=== PATIENT | male | born 1995 | race Caucasian/White ===

== ENCOUNTER 2021-02-07 10:19 | Inpatient (IN) | payer OTHER ==
[~2021-02-07] VITALS: Ht 180.3 cm; Wt 158.8 kg
[2021-02-07] MEDS ORDERED: CLINDAMYCIN PHOSPHATE IV 600 MG in IV DEXTROSE 5% 100 ML IV ONE (11:15)
[2021-02-07] MEDS ORDERED: VANCOMYCIN IV 1,000 MG in IV DEXTROSE 5% 250 ML IV ONE (11:15)
[2021-02-07] MEDS ORDERED: CEFTRIAXONE 1 G in IV DEXTROSE 5% 50 ML IV ONE (11:15)
[2021-02-07] MEDS ORDERED: VANCOMYCIN IV 200 ML ONE (11:25)
[2021-02-07] MEDS ORDERED: CEFTRIAXONE /D5W 50ML IVPB **ER PYXIS IV ONE (11:25)
[2021-02-07 12:03] LABS: HEMATOCRIT 48.3 % (36.7-47.1); MEAN CORPUSCULAR HEMOGLOBIN 30.3 uug (23.8-33.4); MEAN CORPUSCULAR VOLUME 89.2 fL (73.0-96.2); PLATELET COUNT (AUTO) 284 K/uL (152-348)
[2021-02-07] MEDS ORDERED: diphenhydrAMINE 50 MG/1 ML VIAL IV ONE (12:15)
[2021-02-07] MEDS ORDERED: diphenhydrAMINE 50 MG/1 ML VIAL ONE (12:21)
[2021-02-07 12:22] LABS: CREATININE 0.9 mg/dL (0.6-1.3); POTASSIUM 3.9 mmol/L (3.5-5.1)
[2021-02-07 12:34] LABS: BILIRUBIN,DIRECT 0.3 mg/dL (0.0-0.2); TOTAL PROTEIN, SERUM 7.2 g/dL (6.4-8.2)
[2021-02-07] MEDS ORDERED: SULF1TAB48 PO (12:47)
[2021-02-07] MEDS ORDERED: CEPH500C2 PO (12:47)
[2021-02-07 20:15] VITALS: BP_SYST 113; BP_SYST 122; BP_DIAS 44; BP_DIAS 69
[2021-02-07] MEDS ORDERED: Z GUARD REMEDY PASTE 57 GM TUBE TOP PRN (20:45)
[2021-02-07] MEDS ORDERED: ZOLPIDEM 5 MG TABLET PO PRN (20:45)
[2021-02-07] MEDS ORDERED: MAGNESIUM HYDROXIDE 30 ML LIQUID UDC PO PRN (20:45)
[2021-02-07] MEDS ORDERED: KETOROLAC TROMETHAMINE 15 MG INJ IVP PRN (20:45)
[2021-02-07] MEDS ORDERED: ONDANSETRON 4 MG/2 ML VIAL IV PRN (20:45)
[2021-02-07] MEDS: IV NS 1000 ML 1,000 ML IV PRN (21:02)
[2021-02-07] MEDS: ENOXAPARIN SODIUM 40 MG/0.4 ML DISP.SYRIN SQ SCH (21:04)
[2021-02-07] MEDS ORDERED: PIPERACILLIN/TAZO 4.5 GM VIAL IV ONE (21:54)
[2021-02-07] MEDS: LINEZOLID IV 600 MG in PREMIXED 1 EACH IV SCH (21:54)
[2021-02-07] MEDS ORDERED: PIPERACILLIN SODIUM/TAZOBACTAM 4.5 G in IV DEXTROSE 5% 50 ML IV SCH (22:00)
[2021-02-07] MEDS: PIPERACILLIN SODIUM/TAZOBACTAM 4.5 G in IV DEXTROSE 5% 50 ML IV SCH (23:26)
[2021-02-08 04:15] VITALS: BP_SYST 119; BP_SYST 80; BP_DIAS 129; BP_DIAS 59
[2021-02-08] MEDS: PIPERACILLIN SODIUM/TAZOBACTAM 4.5 G in IV DEXTROSE 5% 50 ML IV SCH (06:01)
[2021-02-08 07:33] LABS: HEMATOCRIT 45.8 % (36.7-47.1); MEAN CORPUSCULAR HEMOGLOBIN 30.1 uug (23.8-33.4); MEAN CORPUSCULAR VOLUME 90.3 fL (73.0-96.2); PLATELET COUNT (AUTO) 275 K/uL (152-348)
[2021-02-08 08:03] LABS: BILIRUBIN,TOTAL 0.6 mg/dL (0.2-1.0); CREATININE 1.1 mg/dL (0.6-1.3); MAGNESIUM 2.2 mg/dL (1.8-2.4); PHOSPHOROUS 3.5 mg/dL (2.5-4.9); POTASSIUM 3.9 mmol/L (3.5-5.1); TOTAL PROTEIN, SERUM 6.6 g/dL (6.4-8.2)
[2021-02-08] MEDS: LINEZOLID IV 600 MG in PREMIXED 1 EACH IV SCH ×2 (08:19→20:47)
[2021-02-08 12:00] VITALS: BP 120/67
[2021-02-08] MEDS: PIPERACILLIN SODIUM/TAZOBACTAM 3.375 G in IV DEXTROSE 5% 100 ML IV SCH ×2 (13:17→22:01)
[2021-02-08 15:47] VITALS: BP 101/41
[2021-02-08 20:09] VITALS: BP 109/69
[2021-02-08] MEDS: ENOXAPARIN SODIUM 40 MG/0.4 ML DISP.SYRIN SQ SCH (20:51)
[2021-02-09] MEDS: IV NS 1000 ML 1,000 ML IV PRN ×2 (02:16→18:35)
[2021-02-09] MEDS: ACETAMINOPHEN 325 MG TABLET PO PRN ×2 (02:19→16:05)
[2021-02-09 04:09] VITALS: BP 120/62
[2021-02-09] MEDS: PIPERACILLIN SODIUM/TAZOBACTAM 3.375 G in IV DEXTROSE 5% 100 ML IV SCH ×3 (05:20→21:11)
[2021-02-09 06:35] LABS: HEMATOCRIT 43.1 % (36.7-47.1); PLATELET COUNT (AUTO) 257 K/uL (152-348)
[2021-02-09] MEDS: LINEZOLID IV 600 MG in PREMIXED 1 EACH IV SCH (08:49)
[2021-02-09 11:59] VITALS: BP 123/76
[2021-02-09 20:21] VITALS: BP 136/62
[2021-02-09] MEDS: LINEZOLID 600 MG TABLET PO SCH (21:14)
[2021-02-09] MEDS: ENOXAPARIN SODIUM 40 MG/0.4 ML DISP.SYRIN SQ SCH (21:26)
[2021-02-10 04:21] VITALS: BP 133/76
[2021-02-10] MEDS: PIPERACILLIN SODIUM/TAZOBACTAM 3.375 G in IV DEXTROSE 5% 100 ML IV SCH ×3 (05:42→21:01)
[2021-02-10 06:46] LABS: HEMATOCRIT 45.2 % (36.7-47.1); MEAN CORPUSCULAR HEMOGLOBIN 29.9 uug (23.8-33.4); MEAN CORPUSCULAR VOLUME 88.1 fL (73.0-96.2); PLATELET COUNT (AUTO) 253 K/uL (152-348)
[2021-02-10 07:21] LABS: CREATININE 0.9 mg/dL (0.6-1.3); MAGNESIUM 2.1 mg/dL (1.8-2.4); PHOSPHOROUS 3.8 mg/dL (2.5-4.9); POTASSIUM 3.7 mmol/L (3.5-5.1)
[2021-02-10] MEDS: LINEZOLID 600 MG TABLET PO SCH ×2 (08:00→20:31)
[2021-02-10 11:50] VITALS: BP 128/66
[2021-02-10 16:00] VITALS: BP 133/63
[2021-02-10 16:46] LABS: BAND % (MANUAL) 4 % (0-10); EOSINOPHILS % (MANUAL) 5 % (0-8); LYMPHOCYTES % (MANUAL) 17 % (20-40); MONOCYTES % (MANUAL) 12 % (2-10); NEUTROPHILS % (MANUAL) 62 % (42-75)
[2021-02-10] MEDS: ENOXAPARIN SODIUM 40 MG/0.4 ML DISP.SYRIN SQ SCH (20:42)
[2021-02-10] MEDS: IV NS 1000 ML 1,000 ML IV PRN (23:49)
[2021-02-11 04:15] VITALS: BP 127/88
[2021-02-11] MEDS: PIPERACILLIN SODIUM/TAZOBACTAM 3.375 G in IV DEXTROSE 5% 100 ML IV SCH ×3 (05:31→21:21)
[2021-02-11 06:34] LABS: HEMATOCRIT 44.3 % (36.7-47.1); MEAN CORPUSCULAR HEMOGLOBIN 29.8 uug (23.8-33.4); MEAN CORPUSCULAR VOLUME 87.6 fL (73.0-96.2); PLATELET COUNT (AUTO) 258 K/uL (152-348)
[2021-02-11 07:13] LABS: CREATININE 1.1 mg/dL (0.6-1.3); MAGNESIUM 2.1 mg/dL (1.8-2.4); PHOSPHOROUS 4.2 mg/dL (2.5-4.9)
[2021-02-11] MEDS: LINEZOLID 600 MG TABLET PO SCH ×2 (08:32→20:38)
[2021-02-11 11:10] VITALS: BP 121/73
[2021-02-11 16:15] VITALS: BP 128/55
[2021-02-11] MEDS: IV NS 1000 ML 1,000 ML IV PRN (18:02)
[2021-02-11 20:00] VITALS: BP 119/60
[2021-02-11] MEDS: ENOXAPARIN SODIUM 40 MG/0.4 ML DISP.SYRIN SQ SCH (20:38)
[2021-02-12 04:00] VITALS: BP 118/78
[2021-02-12] MEDS: PIPERACILLIN SODIUM/TAZOBACTAM 3.375 G in IV DEXTROSE 5% 100 ML IV SCH ×3 (06:39→21:38)
[2021-02-12] MEDS: IV NS 1000 ML 1,000 ML IV PRN (06:50)
[2021-02-12] MEDS: LINEZOLID 600 MG TABLET PO SCH ×3 (08:33→20:28)
[2021-02-12] MEDS ORDERED: POLYMYXIN B SULFATE 500,000 UNITS VIAL ONE (10:04)
[2021-02-12] MEDS ORDERED: MIDAZOLAM HCL 2 MG/2 ML VIAL ONE ×2 (10:13→10:40)
[2021-02-12] MEDS ORDERED: FENTANYL CITRATE 100 MCG/2 ML AMPUL ONE (10:13)
[2021-02-12] MEDS ORDERED: ROCURONIUM BROMIDE 50 MG/5 ML VIAL ONE (10:14)
[2021-02-12] MEDS ORDERED: LIDOCAINE 2%-EPI 1:100,000 20 ML VIAL ONE ×2 (10:29)
[2021-02-12] MEDS ORDERED: KETAMINE HCL 500 MG/10 ML INJ ONE (10:41)
[2021-02-12] MEDS ORDERED: IV NS 1000 ML 1,000 ML IV PRN (11:30)
[2021-02-12 12:00] VITALS: BP 128/88
[2021-02-12] MEDS ORDERED: PROPOFOL 200 MG/20 ML BOTTLE IV ONE (16:09)
[2021-02-12] MEDS ORDERED: METOCLOPRAMIDE HCL 10 MG/2 ML VIAL IV ONE (16:09)
[2021-02-12 16:29] VITALS: BP 129/55
[2021-02-12] MEDS ORDERED: ACID1TAB4 PO (16:50)
[2021-02-12] MEDS ORDERED: HYDR-4209 PO (16:50)
[2021-02-12] MEDS ORDERED: DOXY100C2 PO (16:50)
[2021-02-12] MEDS ORDERED: LEVO500T90 PO (16:50)
[2021-02-12 20:30] VITALS: BP 126/76
[2021-02-12] MEDS: ENOXAPARIN SODIUM 40 MG/0.4 ML DISP.SYRIN SQ SCH (21:05)
[2021-02-13 04:30] VITALS: BP 118/79
[2021-02-13] MEDS: PIPERACILLIN SODIUM/TAZOBACTAM 3.375 G in IV DEXTROSE 5% 100 ML IV SCH (05:54)
[2021-02-13] MEDS: LINEZOLID 600 MG TABLET PO SCH (08:21)
[2021-02-13 12:00] VITALS: BP 131/64
== END 2021-02-13 16:10 | disposition home health service (06) | DRG 907 ==
LOC: ER 10:20 → MEDSURG3 20:01
PROVIDERS: ADMIT Nurse Practitioner Acute Care; ATTEND Nurse Practitioner Acute Care
PROC: 05HB33Z Insertion of Infusion Device into Right Basilic Vein, Percutaneous Approach (ICD-10-PCS; principal; 2021-02-08)
PROC: 0KBG0ZZ Excision of Left Trunk Muscle, Open Approach (ICD-10-PCS; 2021-02-12)
DX: T85.79XA Infection and inflammatory reaction due to other internal prosthetic devices, implants and grafts, initial encounter (principal); U07.1 COVID-19; L03.312 Cellulitis of back [any part except buttock and flank]; L03.116 Cellulitis of left lower limb; Z68.42 Body mass index [BMI] 45.0-49.9, adult; L02.211 Cutaneous abscess of abdominal wall; E66.01 Morbid (severe) obesity due to excess calories; F17.210 Nicotine dependence, cigarettes, uncomplicated; F25.9 Schizoaffective disorder, unspecified; Z82.49 Family history of ischemic heart disease and other diseases of the circulatory system; Z82.5 Family history of asthma and other chronic lower respiratory diseases; Z87.01 Personal history of pneumonia (recurrent); J40 Bronchitis, not specified as acute or chronic; F10.11 Alcohol abuse, in remission; L29.9 Pruritus, unspecified; T36.8X5A Adverse effect of other systemic antibiotics, initial encounter; Y92.230 Patient room in hospital as the place of occurrence of the external cause; E78.5 Hyperlipidemia, unspecified
CPT/HCPCS: 36415; 70030-TC; 71045; 74018; 83605; 83615; 83735; 84100; 85025; 86140; 87040; 87070; 87075; 93005; A4649; A4663; G0378; J0696; J1200; J1650; J1885; J2020; J2250; J2543; J2765; J3010; J3370; J3490; J7030; J7040; J7060; U0003